=== PATIENT | female | born 1935 | race African-American/Black ===

== ENCOUNTER 2019-10-28 09:34 | Observation (INO) ==
[2019-10-28] MEDS ORDERED: PANTOPRAZOLE 40 MG VIAL IV STA (10:09)
[2019-10-28 10:41] LABS: Basophils % 0.2 % (0.0-0.8); Eosinophils # 0.3 10*3/uL (0.0-0.87); Hematocrit 20.7 VOL% (35.7-47.0); Immature Granulocytes % 0.7 %; Immature Granulocytes Absolute 0.06 #; Lymphocytes # 2.1 10*3/uL (1.4-4.0); Lymphocytes % 23.5 % (21.3-54.2); Mean Corpuscular Volume 88.5 FL (87-102); Mean Platelet Volume 10.1 FL (9.6-12.0); Monocytes % 11.8 % (1.7-12.7); NRBC # 0.02 10*3/uL; Neutrophils % 60.8 % (38.7-73.9); Platelet Count 323 T/CUMM (130-400); Red Blood Count 2.34 MC/CUMM (3.8-5.5); Red Cell Distribution Width 19.9 % (9.3-17.3)
[2019-10-28 10:43] LABS: Hemoglobin 5.8 GM/DL (12.0-16.0)
[2019-10-28] MEDS ORDERED: SODIUM CHLORIDE 0.9% 1,000 ML IV PRN ×2 (10:43→11:34)
[2019-10-28 10:54] LABS: PT Patient Result 10.5 SECS (9.8-11.9); Partial Thromboplastin Time 30.5 SECS (23.9-33.8)
[2019-10-28 10:58] LABS: Albumin 2.7 G/DL (3.4-5.0); Anisocytosis 2+; Bilirubin,Total 1.4 MG/DL (0.2-1.0); Calcium 8.7 MG/DL (8.5-10.1); Osmolality,Calculated 281.3 MOS/KG (273-304); Platelet Estimate Normal; Total Protein 6.9 G/DL (6.4-8.3)
[2019-10-28 10:59] LABS: Tear Drop Cells Few
[2019-10-28 11:00] LABS: Macrocytosis Slight
[2019-10-28] MEDS ORDERED: GLUCAGON 1 MG VIAL IM PRN (11:31)
[2019-10-28] MEDS ORDERED: ACETAMINOPHEN 325 MG TABLET PO PRN (11:31)
[2019-10-28] MEDS ORDERED: DEXTROSE 50% 25 GM/50 ML VIAL IV PRN (11:31)
[2019-10-28] MEDS ORDERED: MORPHINE 4 MG/1 ML VIAL IV PRN (11:31)
[2019-10-28] MEDS ORDERED: ONDANSETRON 4 MG/2 ML VIAL IV PRN (11:31)
[2019-10-28] MEDS ORDERED: FUROSEMIDE 40 MG/4 ML VIAL IV PRN (11:34)
[2019-10-28] MEDS ORDERED: PANTOPRAZOLE 40 MG TABLET PO SCH (12:00)
[2019-10-28] MEDS ORDERED: FUROSEMIDE 20 MG TABLET PO PRN (12:19)
[2019-10-28] MEDS ORDERED: hydrALAZINE 20 MG/1 ML VIAL IV PRN (12:20)
[2019-10-28] MEDS: amLODIPine 5 MG TABLET PO SCH (13:32)
[2019-10-28] MEDS: carvediloL 25 MG TABLET PO SCH (17:13)
[2019-10-28 19:36] LABS: Hematocrit 26.7 VOL% (35.7-47.0); Hemoglobin 7.9 GM/DL (12.0-16.0)
[2019-10-28] MEDS: BRIMONIDINE/TIMOLOL OPH SOLN 5 ML BOTTLE BOTH EYES SCH (21:12)
[2019-10-28] MEDS: TRAVOPROST 0.004% OPH SOLN 2.5 ML BOTTLE BOTH EYES SCH (21:12)
[2019-10-28] MEDS: azaTHIOprine 50 MG TABLET PO SCH (21:13)
[2019-10-28] MEDS: MONTELUKAST 10 MG TABLET PO SCH (21:13)
[2019-10-28] MEDS: PANTOPRAZOLE 40 MG TABLET PO SCH (21:14)
[2019-10-28] MEDS: ISOSORBIDE MONONITRATE 30 MG TABLET PO SCH (21:14)
[2019-10-28] MEDS: FERROUS GLUCONATE 324 MG TABLET PO SCH (21:14)
[2019-10-29 04:27] LABS: Basophils % 0.3 % (0.0-0.8); Eosinophils # 0.2 10*3/uL (0.0-0.87); Eosinophils % 2.6 % (0.00-10.9); Hematocrit 26.8 VOL% (35.7-47.0); Hemoglobin 8.1 GM/DL (12.0-16.0); Immature Granulocytes % 0.8 %; Immature Granulocytes Absolute 0.07 #; Lymphocytes # 2.1 10*3/uL (1.4-4.0); Lymphocytes % 23.5 % (21.3-54.2); Mean Corpuscular HGB Conc 30.2 GM/DL (32-36); Mean Corpuscular Volume 86.7 FL (87-102); Mean Platelet Volume 10.9 FL (9.6-12.0); NRBC # 0.04 10*3/uL; Neutrophils % 60.8 % (38.7-73.9); Platelet Count 302 T/CUMM (130-400); Red Blood Count 3.09 MC/CUMM (3.8-5.5); Red Cell Distribution Width 18.2 % (9.3-17.3)
[2019-10-29 04:46] LABS: Albumin 2.3 G/DL (3.4-5.0); Calcium 8.4 MG/DL (8.5-10.1); Osmolality,Calculated 281.3 MOS/KG (273-304); Total Protein 6.1 G/DL (6.4-8.3)
[2019-10-29] MEDS ORDERED: SUCRALFATE 1 GM/10 ML UDCUP NG ONE (08:03)
[2019-10-29] MEDS: PANTOPRAZOLE 40 MG TABLET PO SCH ×2 (09:11→21:20)
[2019-10-29] MEDS: amLODIPine 5 MG TABLET PO SCH (09:11)
[2019-10-29] MEDS: carvediloL 25 MG TABLET PO SCH ×2 (09:11→16:56)
[2019-10-29] MEDS: azaTHIOprine 50 MG TABLET PO SCH ×2 (09:11→21:24)
[2019-10-29] MEDS: FERROUS GLUCONATE 324 MG TABLET PO SCH ×2 (09:12→21:20)
[2019-10-29] MEDS: BRIMONIDINE/TIMOLOL OPH SOLN 5 ML BOTTLE BOTH EYES SCH ×2 (09:12→21:24)
[2019-10-29] MEDS ORDERED: FUROSEMIDE 20 MG/2 ML VIAL IV PRN (09:55)
[2019-10-29] MEDS: FUROSEMIDE 20 MG TABLET PO SCH (09:55)
[2019-10-29] MEDS ORDERED: FUROSEMIDE 40 MG/4 ML VIAL IV PRN (10:09)
[2019-10-29 11:41] LABS: Hematocrit 28.5 VOL% (35.7-47.0); Hemoglobin 8.6 GM/DL (12.0-16.0)
[2019-10-29] MEDS: BETAMETHASONE DIPR 0.05% CREAM 15 GM TUBE TOP SCH (17:00)
[2019-10-29 18:55] LABS: Hematocrit 30.1 VOL% (35.7-47.0); Hemoglobin 9.2 GM/DL (12.0-16.0)
[2019-10-29] MEDS ORDERED: guaiFENesin/DM ER 600-30 MG TABLET PO ONE (20:30)
[2019-10-29] MEDS: MONTELUKAST 10 MG TABLET PO SCH (21:20)
[2019-10-29] MEDS: ISOSORBIDE MONONITRATE 30 MG TABLET PO SCH (21:24)
[2019-10-29] MEDS: TRAVOPROST 0.004% OPH SOLN 2.5 ML BOTTLE BOTH EYES SCH (21:24)
[2019-10-30 05:33] LABS: Basophils % 0.3 % (0.0-0.8); Eosinophils # 0.2 10*3/uL (0.0-0.87); Eosinophils % 2.6 % (0.00-10.9); Hematocrit 28.7 VOL% (35.7-47.0); Hemoglobin 8.6 GM/DL (12.0-16.0); Immature Granulocytes % 0.9 %; Immature Granulocytes Absolute 0.08 #; Lymphocytes # 2.2 10*3/uL (1.4-4.0); Lymphocytes % 23.4 % (21.3-54.2); Mean Corpuscular Volume 88.9 FL (87-102); Mean Platelet Volume 10.5 FL (9.6-12.0); Monocytes % 11.4 % (1.7-12.7); NRBC # 0.05 10*3/uL; Neutrophils % 61.4 % (38.7-73.9); Platelet Count 293 T/CUMM (130-400); Red Blood Count 3.23 MC/CUMM (3.8-5.5); Red Cell Distribution Width 17.9 % (9.3-17.3); White Blood Count 9.2 T/CUMM (4-12)
[2019-10-30 06:32] LABS: Hypochromasia 2+; Ovalocytes Few
[2019-10-30 06:33] LABS: Microcytosis 1+; Platelet Estimate Normal; Polychromasia Slight
[2019-10-30 07:55] VITALS: BP 141/69
[2019-10-30] MEDS: carvediloL 25 MG TABLET PO SCH (09:44)
[2019-10-30] MEDS: azaTHIOprine 50 MG TABLET PO SCH (09:45)
[2019-10-30] MEDS: FERROUS GLUCONATE 324 MG TABLET PO SCH (09:45)
[2019-10-30] MEDS: amLODIPine 5 MG TABLET PO SCH (09:46)
[2019-10-30] MEDS: PANTOPRAZOLE 40 MG TABLET PO SCH (09:46)
[2019-10-30] MEDS: FUROSEMIDE 20 MG TABLET PO SCH (09:47)
[2019-10-30] MEDS: BRIMONIDINE/TIMOLOL OPH SOLN 5 ML BOTTLE BOTH EYES SCH (09:50)
[2019-10-30] MEDS: BETAMETHASONE DIPR 0.05% CREAM 15 GM TUBE TOP SCH (09:52)
== END 2019-10-30 12:02 | disposition home health service (06) ==
LOC: N.ED 09:34 → N.EDINP 11:31 → INTOOBSV 11:31 → N.EDINP 12:40 → N.5E 12:46
PROVIDERS: ADMIT Internal Medicine; ATTEND Internal Medicine

== ENCOUNTER 2019-12-07 11:34 | Inpatient (IN) ==
[2019-12-07] MEDS ORDERED: DILTIAZEM 50 MG/10 ML VIAL IV STA (11:56)
[2019-12-07] MEDS ORDERED: GLUCAGON 1 MG VIAL IM PRN (13:08)
[2019-12-07] MEDS ORDERED: DEXTROSE 50% 25 GM/50 ML VIAL IV PRN (13:08)
[2019-12-07] MEDS ORDERED: ONDANSETRON 4 MG/2 ML VIAL IV PRN (13:08)
[2019-12-07] MEDS ORDERED: ACETAMINOPHEN 325 MG TABLET PO PRN (13:08)
[2019-12-07 13:37] LABS: Basophils % 0.1 % (0.0-0.8); Eosinophils # 0.2 10*3/uL (0.0-0.87); Eosinophils % 2.6 % (0.00-10.9); Hematocrit 28.9 VOL% (35.7-47.0); Immature Granulocytes % 0.6 %; Immature Granulocytes Absolute 0.04 #; Lymphocytes % 14.5 % (21.3-54.2); Mean Corpuscular HGB Conc 31.1 GM/DL (32-36); Mean Corpuscular Volume 89.5 FL (87-102); Monocytes % 11.9 % (1.7-12.7); Neutrophils % 70.3 % (38.7-73.9); PT Patient Result 10.9 SECS (9.8-11.9); Partial Thromboplastin Time 33.8 SECS (23.9-33.8); Red Blood Count 3.23 MC/CUMM (3.8-5.5); Red Cell Distribution Width 22.4 % (9.3-17.3)
[2019-12-07 13:38] LABS: Platelet Count 60 T/CUMM (130-400)
[2019-12-07 14:03] LABS: Bilirubin,Total 0.8 MG/DL (0.2-1.0); Calcium 9.1 MG/DL (8.5-10.1); Osmolality,Calculated 278.4 MOS/KG (273-304); Thyroid Stimulating Hormone 4.33 uIU/ml (0.358-3.74); Total Protein 7.2 G/DL (6.4-8.3)
[2019-12-07 14:10] LABS: Anisocytosis 1+; Hypochromasia Slight; Microcytosis 1+; Platelet Estimate Decreased
[2019-12-07] MEDS: dilTIAZem Drip 125 MG/125 ML PREMIX IV SCH ×2 (15:19→22:03)
[2019-12-07 18:50] LABS: Bilirubin,Urine Negative (Negative); Blood, Urine Negative (Negative); Glucose,Urine (UA) Negative (Negative); Ketones,Urine Negative (Negative); Nitrite,Urine Negative (Negative); Protein,Urine Negative; RBC,Urine 1 /HPF (0-4); Squamous Epithelial Cell,Urine Occasional /HPF (0-10); Urine Appearance CLEAR (Clear); Urine Color Straw (Yellow); Urine Specific Gravity 1.006 (1.001-1.035); Urine Urobilinogen < 2.0 EU/DL (0.2-1.0); WBC,Urine <1 /HPF (0-6)
[2019-12-07 19:03] LABS: Barbiturates Screen,Urine Negative (Negative); Benzodiazepines Screen,Urine Negative (Negative); Cannabinoid Screen,Urine Negative (Negative); Opiate Screen,Urine Negative (Negative); Phencyclidine Screen,Urine Negative (Negative)
[2019-12-08 06:14] LABS: Albumin 2.4 G/DL (3.4-5.0); Bilirubin,Total 0.6 MG/DL (0.2-1.0); Calcium 8.6 MG/DL (8.5-10.1); Osmolality,Calculated 278.5 MOS/KG (273-304); Risk Ratio 3.12; Total Protein 6.5 G/DL (6.4-8.3); VLDL CHOLESTEROL 18.4 MG/DL
[2019-12-08 07:02] LABS: Basophils % 0.2 % (0.0-0.8); Eosinophils # 0.2 10*3/uL (0.0-0.87); Eosinophils % 2.9 % (0.00-10.9); Hematocrit 24.1 VOL% (35.7-47.0); Immature Granulocytes Absolute 0.06 #; Mean Corpuscular HGB Conc 31.1 GM/DL (32-36); Mean Corpuscular Volume 89.9 FL (87-102); Monocytes % 15.9 % (1.7-12.7); Red Blood Count 2.68 MC/CUMM (3.8-5.5); Red Cell Distribution Width 22.5 % (9.3-17.3); White Blood Count 6.1 T/CUMM (4-12)
[2019-12-08 07:13] LABS: Hemoglobin 7.5 GM/DL (12.0-16.0)
[2019-12-08 07:14] LABS: Platelet Count 59 T/CUMM (130-400)
[2019-12-08 07:26] LABS: Eosinophils 3 % (0-10); Lymphocytes 19 % (20-55); Platelet Estimate Decreased; Segmented Neutrophils 72 % (50-85); Total Cells Counted 100
[2019-12-08 07:27] LABS: Atypical Lymphocytes Few; Hypochromasia 1+; Microcytosis Slight
[2019-12-08 08:08] LABS: Hematocrit 24.1 VOL% (35.7-47.0); Hemoglobin 7.4 GM/DL (12.0-16.0)
[2019-12-08 08:34] LABS: % Iron Saturation 13.8 % (18-50)
[2019-12-08 08:44] LABS: Folate 6.6 NG/ML (5.4-24.0)
[2019-12-08] MEDS ORDERED: amLODIPine 5 MG TABLET PO SCH (09:00)
[2019-12-08] MEDS ORDERED: PANTOPRAZOLE 40 MG TABLET PO SCH (09:00)
[2019-12-08] MEDS: FERROUS GLUCONATE 324 MG TABLET PO SCH ×2 (09:16→22:00)
[2019-12-08] MEDS: carvediloL 25 MG TABLET PO SCH ×2 (09:17→21:57)
[2019-12-08] MEDS: DILTIAZEM CD 120 MG CAPSULE PO SCH (10:37)
[2019-12-08] MEDS ORDERED: IRON SUCROSE 300 MG in SODIUM CHLORIDE 0.9% 100 ML IV ONE (11:32)
[2019-12-08] MEDS: BRIMONIDINE/TIMOLOL OPH SOLN 5 ML BOTTLE BOTH EYES SCH ×2 (11:38→21:58)
[2019-12-08] MEDS: TRIAMCINOLONE 0.1% OINT 15 GM TUBE TOP SCH ×2 (11:38→22:22)
[2019-12-08] MEDS: azaTHIOprine 50 MG TABLET PO SCH ×2 (11:39→21:56)
[2019-12-08] MEDS: BETAMETHASONE DIPR 0.05% CREAM 15 GM TUBE TOP SCH ×2 (11:39→22:22)
[2019-12-08] MEDS: dilTIAZem Drip 125 MG/125 ML PREMIX IV SCH (13:08)
[2019-12-08] MEDS ORDERED: guaiFENesin 200 MG/10 ML UDCUP PO PRN (14:18)
[2019-12-08] MEDS: GABAPENTIN 100 MG CAPSULE PO SCH ×3 (15:04→22:02)
[2019-12-08] MEDS: PANTOPRAZOLE 40 MG TABLET PO SCH (21:56)
[2019-12-08] MEDS: MONTELUKAST 10 MG TABLET PO SCH (21:56)
[2019-12-08] MEDS: TRAVOPROST 0.004% OPH SOLN 2.5 ML BOTTLE BOTH EYES SCH (21:57)
[2019-12-08] MEDS: ISOSORBIDE MONONITRATE 30 MG TABLET PO SCH (22:01)
[2019-12-09 06:09] LABS: Basophils % 0.1 % (0.0-0.8); Eosinophils # 0.2 10*3/uL (0.0-0.87); Eosinophils % 2.7 % (0.00-10.9); Hematocrit 23.1 VOL% (35.7-47.0); Hemoglobin 7.1 GM/DL (12.0-16.0); Immature Granulocytes % 0.6 %; Immature Granulocytes Absolute 0.04 #; Lymphocytes # 0.9 10*3/uL (1.4-4.0); Lymphocytes % 12.3 % (21.3-54.2); Mean Corpuscular HGB Conc 30.7 GM/DL (32-36); Mean Corpuscular Volume 90.6 FL (87-102); Neutrophils % 71.3 % (38.7-73.9); Platelet Count 56 T/CUMM (130-400); Red Blood Count 2.55 MC/CUMM (3.8-5.5); Red Cell Distribution Width 22.5 % (9.3-17.3); White Blood Count 7.1 T/CUMM (4-12)
[2019-12-09 06:23] LABS: Alanine Aminotransferase < 6 U/L (13-56); Albumin 2.3 G/DL (3.4-5.0); Alkaline Phosphatase 59 U/L (45-117); Aspartate Amino Transferase 12 U/L (0-37); Blood Urea Nitrogen 10 MG/DL (7-18); Calcium 8.8 MG/DL (8.5-10.1); Estimated Glom Filtration Rate 104 ML/MIN; Glucose 140 MG/DL (74-106); Osmolality,Calculated 281.3 MOS/KG (273-304); Total Protein 6.4 G/DL (6.4-8.3)
[2019-12-09 06:49] LABS: Eosinophils 1 % (0-10); Hypochromasia 1+; Lymphocytes 13 % (20-55); Microcytosis 1+; Segmented Neutrophils 74 % (50-85); Total Cells Counted 100
[2019-12-09 06:50] LABS: Ovalocytes Slight; Platelet Estimate Decreased
[2019-12-09] MEDS ORDERED: SODIUM CHLORIDE 0.9% 1,000 ML IV PRN (07:38)
[2019-12-09] MEDS: GABAPENTIN 100 MG CAPSULE PO SCH ×2 (09:39→21:08)
[2019-12-09] MEDS: DILTIAZEM CD 120 MG CAPSULE PO SCH (09:40)
[2019-12-09] MEDS: azaTHIOprine 50 MG TABLET PO SCH ×2 (09:40→21:19)
[2019-12-09] MEDS: FERROUS GLUCONATE 324 MG TABLET PO SCH ×2 (09:40→21:20)
[2019-12-09] MEDS: PANTOPRAZOLE 40 MG TABLET PO SCH (09:42)
[2019-12-09] MEDS: BETAMETHASONE DIPR 0.05% CREAM 15 GM TUBE TOP SCH ×2 (09:42→21:20)
[2019-12-09] MEDS: BRIMONIDINE/TIMOLOL OPH SOLN 5 ML BOTTLE BOTH EYES SCH ×2 (09:44→21:11)
[2019-12-09] MEDS: TRIAMCINOLONE 0.1% OINT 15 GM TUBE TOP SCH ×2 (09:44→21:20)
[2019-12-09] MEDS: carvediloL 25 MG TABLET PO SCH ×2 (09:46→21:09)
[2019-12-09] MEDS: dilTIAZem Drip 125 MG/125 ML PREMIX IV SCH (11:42)
[2019-12-09 13:15] LABS: Basophils % 0.3 % (0.0-0.8); Eosinophils # 0.2 10*3/uL (0.0-0.87); Eosinophils % 2.9 % (0.00-10.9); Hematocrit 24.5 VOL% (35.7-47.0); Hemoglobin 7.3 GM/DL (12.0-16.0); Immature Granulocytes % 0.8 %; Immature Granulocytes Absolute 0.05 #; Lymphocytes # 0.9 10*3/uL (1.4-4.0); Lymphocytes % 14.1 % (21.3-54.2); Mean Corpuscular HGB Conc 29.8 GM/DL (32-36); Mean Corpuscular Volume 92.8 FL (87-102); Monocytes % 11.6 % (1.7-12.7); Neutrophils % 70.3 % (38.7-73.9); Platelet Count 54 T/CUMM (130-400); Red Blood Count 2.64 MC/CUMM (3.8-5.5); Red Cell Distribution Width 22.5 % (9.3-17.3); White Blood Count 6.5 T/CUMM (4-12)
[2019-12-09 14:50] LABS: Eosinophils 2 % (0-10); Lymphocytes 9 % (20-55); Platelet Estimate Decreased; Segmented Neutrophils 81 % (50-85); Total Cells Counted 100
[2019-12-09 14:51] LABS: Anisocytosis 1+; Hypochromasia 2+; Ovalocytes Few
[2019-12-09 14:52] LABS: Macrocytosis 1+; Microcytosis 1+; Tear Drop Cells Few
[2019-12-09] MEDS: MONTELUKAST 10 MG TABLET PO SCH (21:08)
[2019-12-09] MEDS: FAMOTIDINE 20 MG TABLET PO SCH (21:09)
[2019-12-09] MEDS: TRAVOPROST 0.004% OPH SOLN 2.5 ML BOTTLE BOTH EYES SCH (21:11)
[2019-12-09] MEDS: ISOSORBIDE MONONITRATE 30 MG TABLET PO SCH (21:20)
[2019-12-10 06:28] LABS: Basophils % 0.3 % (0.0-0.8); Eosinophils # 0.2 10*3/uL (0.0-0.87); Eosinophils % 2.5 % (0.00-10.9); Hematocrit 31.5 VOL% (35.7-47.0); Hemoglobin 9.9 GM/DL (12.0-16.0); Immature Granulocytes % 0.6 %; Immature Granulocytes Absolute 0.04 #; Lymphocytes # 0.8 10*3/uL (1.4-4.0); Lymphocytes % 10.8 % (21.3-54.2); Mean Corpuscular HGB Conc 31.4 GM/DL (32-36); Monocytes % 12.2 % (1.7-12.7); Neutrophils % 73.6 % (38.7-73.9); Platelet Count 56 T/CUMM (130-400); Red Blood Count 3.54 MC/CUMM (3.8-5.5); Red Cell Distribution Width 19.8 % (9.3-17.3); White Blood Count 7.2 T/CUMM (4-12)
[2019-12-10 06:48] LABS: Alanine Aminotransferase < 9 U/L (13-56); Albumin 2.5 G/DL (3.4-5.0); Alkaline Phosphatase 65 U/L (45-117); Aspartate Amino Transferase 11 U/L (0-37); Blood Urea Nitrogen 9 MG/DL (7-18); Calcium 8.7 MG/DL (8.5-10.1); Estimated Glom Filtration Rate 88 ML/MIN; Glucose 180 MG/DL (74-106); Osmolality,Calculated 278.7 MOS/KG (273-304)
[2019-12-10 07:36] LABS: Band Neutrophils 6 % (0-10); Eosinophils 7 % (0-10); Lymphocytes 14 % (20-55); Platelet Estimate Decreased; Segmented Neutrophils 62 % (50-85); Total Cells Counted 100
[2019-12-10 07:37] LABS: Anisocytosis 2+; Poikilocytosis Slight
[2019-12-10] MEDS: azaTHIOprine 50 MG TABLET PO SCH ×2 (09:46→22:20)
[2019-12-10] MEDS: GABAPENTIN 100 MG CAPSULE PO SCH ×2 (09:46→22:20)
[2019-12-10] MEDS: FAMOTIDINE 20 MG TABLET PO SCH ×2 (09:46→22:34)
[2019-12-10] MEDS: carvediloL 25 MG TABLET PO SCH ×2 (09:46→22:20)
[2019-12-10] MEDS: DILTIAZEM CD 120 MG CAPSULE PO SCH (09:47)
[2019-12-10] MEDS: FERROUS GLUCONATE 324 MG TABLET PO SCH ×2 (09:47→22:20)
[2019-12-10] MEDS: TRIAMCINOLONE 0.1% OINT 15 GM TUBE TOP SCH ×2 (09:48→22:34)
[2019-12-10] MEDS: BETAMETHASONE DIPR 0.05% CREAM 15 GM TUBE TOP SCH ×2 (09:48→22:34)
[2019-12-10] MEDS: BRIMONIDINE/TIMOLOL OPH SOLN 5 ML BOTTLE BOTH EYES SCH ×2 (09:48→22:34)
[2019-12-10] MEDS: dilTIAZem Drip 125 MG/125 ML PREMIX IV SCH (11:33)
[2019-12-10] MEDS ORDERED: FUROSEMIDE 40 MG TABLET PO ONE (11:56)
[2019-12-10] MEDS ORDERED: FUROSEMIDE 40 MG TABLET PO SCH (12:00)
[2019-12-10] MEDS: ISOSORBIDE MONONITRATE 30 MG TABLET PO SCH (22:23)
[2019-12-10] MEDS: MONTELUKAST 10 MG TABLET PO SCH (22:24)
[2019-12-10] MEDS: TRAVOPROST 0.004% OPH SOLN 2.5 ML BOTTLE BOTH EYES SCH (22:34)
[2019-12-11 06:12] LABS: Basophils % 0.2 % (0.0-0.8); Eosinophils # 0.2 10*3/uL (0.0-0.87); Eosinophils % 2.8 % (0.00-10.9); Hematocrit 29.6 VOL% (35.7-47.0); Hemoglobin 9.2 GM/DL (12.0-16.0); Immature Granulocytes % 0.3 %; Immature Granulocytes Absolute 0.02 #; Lymphocytes # 0.9 10*3/uL (1.4-4.0); Lymphocytes % 14.4 % (21.3-54.2); Mean Corpuscular HGB Conc 31.1 GM/DL (32-36); Neutrophils % 69.3 % (38.7-73.9); Platelet Count 44 T/CUMM (130-400); Red Blood Count 3.29 MC/CUMM (3.8-5.5); Red Cell Distribution Width 19.3 % (9.3-17.3); White Blood Count 6.1 T/CUMM (4-12)
[2019-12-11 06:28] LABS: Calcium 8.4 MG/DL (8.5-10.1); Osmolality,Calculated 281.3 MOS/KG (273-304)
[2019-12-11] MEDS ORDERED: MAGNESIUM SULF RIDER 4 GM in PREMIX 1 EACH IV ONE (06:53)
[2019-12-11 07:16] LABS: Anisocytosis 1+; Band Neutrophils 5 % (0-10); Eosinophils 3 % (0-10); Lymphocytes 15 % (20-55); Macrocytosis Slight; Platelet Estimate Decreased; Poikilocytosis Slight; Segmented Neutrophils 67 % (50-85); Tear Drop Cells Few; Total Cells Counted 100
[2019-12-11] MEDS: FAMOTIDINE 20 MG TABLET PO SCH ×2 (09:04→21:32)
[2019-12-11] MEDS: carvediloL 25 MG TABLET PO SCH ×2 (09:04→21:32)
[2019-12-11] MEDS: FERROUS GLUCONATE 324 MG TABLET PO SCH ×2 (09:05→21:39)
[2019-12-11] MEDS: DILTIAZEM CD 120 MG CAPSULE PO SCH (09:05)
[2019-12-11] MEDS: GABAPENTIN 100 MG CAPSULE PO SCH ×2 (09:05→21:32)
[2019-12-11] MEDS: azaTHIOprine 50 MG TABLET PO SCH ×2 (09:08→21:32)
[2019-12-11] MEDS: TRIAMCINOLONE 0.1% OINT 15 GM TUBE TOP SCH ×2 (09:09→21:32)
[2019-12-11] MEDS: BETAMETHASONE DIPR 0.05% CREAM 15 GM TUBE TOP SCH ×2 (09:09→21:32)
[2019-12-11] MEDS: BRIMONIDINE/TIMOLOL OPH SOLN 5 ML BOTTLE BOTH EYES SCH ×2 (09:09→21:33)
[2019-12-11] MEDS ORDERED: MAGNESIUM SULF RIDER 2 GM in PREMIX 1 EACH IV ONE (13:50)
[2019-12-11] MEDS: MONTELUKAST 10 MG TABLET PO SCH (21:32)
[2019-12-11] MEDS: ISOSORBIDE MONONITRATE 30 MG TABLET PO SCH (21:32)
[2019-12-11] MEDS: TRAVOPROST 0.004% OPH SOLN 2.5 ML BOTTLE BOTH EYES SCH (21:33)
[2019-12-12 06:09] LABS: Basophils % 0.2 % (0.0-0.8); Eosinophils # 0.2 10*3/uL (0.0-0.87); Eosinophils % 2.6 % (0.00-10.9); Hematocrit 28.4 VOL% (35.7-47.0); Hemoglobin 9.1 GM/DL (12.0-16.0); Immature Granulocytes % 0.6 %; Immature Granulocytes Absolute 0.04 #; Lymphocytes # 0.9 10*3/uL (1.4-4.0); Lymphocytes % 14.2 % (21.3-54.2); Monocytes % 10.8 % (1.7-12.7); Neutrophils % 71.6 % (38.7-73.9); Red Blood Count 3.19 MC/CUMM (3.8-5.5); Red Cell Distribution Width 19.2 % (9.3-17.3); White Blood Count 6.2 T/CUMM (4-12)
[2019-12-12 06:10] LABS: Platelet Count 42 T/CUMM (130-400)
[2019-12-12 06:11] LABS: Calcium 8.4 MG/DL (8.5-10.1); Osmolality,Calculated 280.4 MOS/KG (273-304)
[2019-12-12 06:29] LABS: Eosinophils 2 % (0-10); Lymphocytes 13 % (20-55); Platelet Estimate Decreased; Segmented Neutrophils 76 % (50-85); Total Cells Counted 100
[2019-12-12 06:30] LABS: Hypochromasia 1+; Microcytosis 1+; Ovalocytes Slight
[2019-12-12] MEDS: azaTHIOprine 50 MG TABLET PO SCH ×2 (09:08→21:25)
[2019-12-12] MEDS: DILTIAZEM CD 120 MG CAPSULE PO SCH (09:08)
[2019-12-12] MEDS: carvediloL 25 MG TABLET PO SCH ×2 (09:08→21:24)
[2019-12-12] MEDS: FERROUS GLUCONATE 324 MG TABLET PO SCH ×2 (09:09→21:24)
[2019-12-12] MEDS: FAMOTIDINE 20 MG TABLET PO SCH ×2 (09:09→21:26)
[2019-12-12] MEDS: GABAPENTIN 100 MG CAPSULE PO SCH ×2 (09:09→21:24)
[2019-12-12] MEDS: BRIMONIDINE/TIMOLOL OPH SOLN 5 ML BOTTLE BOTH EYES SCH ×2 (09:14→21:26)
[2019-12-12] MEDS: BETAMETHASONE DIPR 0.05% CREAM 15 GM TUBE TOP SCH ×2 (09:14→21:45)
[2019-12-12] MEDS: TRIAMCINOLONE 0.1% OINT 15 GM TUBE TOP SCH ×2 (09:14→21:45)
[2019-12-12] MEDS: LORATADINE 10 MG TABLET PO SCH (10:01)
[2019-12-12] MEDS: MONTELUKAST 10 MG TABLET PO SCH (21:24)
[2019-12-12] MEDS: ISOSORBIDE MONONITRATE 30 MG TABLET PO SCH (21:25)
[2019-12-12] MEDS: TRAVOPROST 0.004% OPH SOLN 2.5 ML BOTTLE BOTH EYES SCH (21:26)
[2019-12-13 05:09] LABS: Basophils % 0.2 % (0.0-0.8); Eosinophils # 0.1 10*3/uL (0.0-0.87); Hematocrit 27.1 VOL% (35.7-47.0); Hemoglobin 8.3 GM/DL (12.0-16.0); Immature Granulocytes % 0.4 %; Immature Granulocytes Absolute 0.02 #; Lymphocytes % 19.1 % (21.3-54.2); Mean Corpuscular HGB Conc 30.6 GM/DL (32-36); Mean Corpuscular Volume 90.9 FL (87-102); Monocytes % 11.2 % (1.7-12.7); Neutrophils % 67.1 % (38.7-73.9); Red Blood Count 2.98 MC/CUMM (3.8-5.5); Red Cell Distribution Width 19.4 % (9.3-17.3)
[2019-12-13 05:12] LABS: Platelet Count 36 T/CUMM (130-400)
[2019-12-13 05:22] LABS: Calcium 8.5 MG/DL (8.5-10.1); Calcium 8.7 MG/DL (8.5-10.1); Osmolality,Calculated 274.8 MOS/KG (273-304); Osmolality,Calculated 280.4 MOS/KG (273-304)
[2019-12-13 05:29] LABS: Hypochromasia 1+; Microcytosis 1+; Platelet Estimate Decreased
[2019-12-13] MEDS: LORATADINE 10 MG TABLET PO SCH (08:39)
[2019-12-13] MEDS: FERROUS GLUCONATE 324 MG TABLET PO SCH ×2 (08:39→21:54)
[2019-12-13] MEDS: carvediloL 25 MG TABLET PO SCH ×2 (08:39→21:55)
[2019-12-13] MEDS: FAMOTIDINE 20 MG TABLET PO SCH ×2 (08:39→21:54)
[2019-12-13] MEDS: GABAPENTIN 100 MG CAPSULE PO SCH ×2 (08:39→21:55)
[2019-12-13] MEDS: DILTIAZEM CD 120 MG CAPSULE PO SCH (08:40)
[2019-12-13] MEDS: azaTHIOprine 50 MG TABLET PO SCH ×2 (08:40→21:56)
[2019-12-13] MEDS: BETAMETHASONE DIPR 0.05% CREAM 15 GM TUBE TOP SCH ×2 (08:43→21:58)
[2019-12-13] MEDS: TRIAMCINOLONE 0.1% OINT 15 GM TUBE TOP SCH ×2 (08:43→21:58)
[2019-12-13] MEDS: BRIMONIDINE/TIMOLOL OPH SOLN 5 ML BOTTLE BOTH EYES SCH ×2 (08:43→21:52)
[2019-12-13] MEDS: TRAVOPROST 0.004% OPH SOLN 2.5 ML BOTTLE BOTH EYES SCH (21:52)
[2019-12-13] MEDS: MONTELUKAST 10 MG TABLET PO SCH (21:56)
[2019-12-13] MEDS: ISOSORBIDE MONONITRATE 30 MG TABLET PO SCH (21:56)
[2019-12-14 07:31] LABS: Basophils % 0.2 % (0.0-0.8); Eosinophils # 0.1 10*3/uL (0.0-0.87); Eosinophils % 2.4 % (0.00-10.9); Hematocrit 26.1 VOL% (35.7-47.0); Immature Granulocytes % 0.5 %; Immature Granulocytes Absolute 0.03 #; Lymphocytes # 0.9 10*3/uL (1.4-4.0); Lymphocytes % 16.5 % (21.3-54.2); Mean Corpuscular HGB Conc 30.7 GM/DL (32-36); Mean Corpuscular Volume 91.3 FL (87-102); Monocytes % 11.4 % (1.7-12.7); Red Blood Count 2.86 MC/CUMM (3.8-5.5); Red Cell Distribution Width 19.4 % (9.3-17.3); White Blood Count 5.5 T/CUMM (4-12)
[2019-12-14 07:32] LABS: Platelet Count 38 T/CUMM (130-400)
[2019-12-14 07:45] LABS: Calcium 8.5 MG/DL (8.5-10.1); Osmolality,Calculated 282.3 MOS/KG (273-304)
[2019-12-14 07:58] LABS: Eosinophils 2 % (0-10); Hypochromasia 1+; Lymphocytes 8 % (20-55); Platelet Estimate Decreased; Segmented Neutrophils 84 % (50-85); Total Cells Counted 100
[2019-12-14 07:59] LABS: Microcytosis 1+; Ovalocytes Slight
[2019-12-14] MEDS: FERROUS GLUCONATE 324 MG TABLET PO SCH (08:30)
[2019-12-14] MEDS: GABAPENTIN 100 MG CAPSULE PO SCH (08:30)
[2019-12-14] MEDS: azaTHIOprine 50 MG TABLET PO SCH (08:30)
[2019-12-14] MEDS: FAMOTIDINE 20 MG TABLET PO SCH (08:30)
[2019-12-14] MEDS: BETAMETHASONE DIPR 0.05% CREAM 15 GM TUBE TOP SCH (08:31)
[2019-12-14] MEDS: LORATADINE 10 MG TABLET PO SCH (08:31)
[2019-12-14] MEDS: TRIAMCINOLONE 0.1% OINT 15 GM TUBE TOP SCH (08:31)
[2019-12-14] MEDS: DILTIAZEM CD 120 MG CAPSULE PO SCH (08:31)
[2019-12-14] MEDS: carvediloL 25 MG TABLET PO SCH (08:31)
[2019-12-14] MEDS: BRIMONIDINE/TIMOLOL OPH SOLN 5 ML BOTTLE BOTH EYES SCH (08:31)
[2019-12-14 12:19] VITALS: BP 134/62
== END 2019-12-14 15:00 | disposition home health service (06) | DRG 309 ==
LOC: N.ED 11:34 → SUATTDRO 13:05 → N.EDINP 13:05 → N.TELEN 13:35
PROVIDERS: ADMIT Internal Medicine; ATTEND Internal Medicine Geriatric Medicine

== ENCOUNTER 2019-12-30 11:08 | Observation (INO) ==
[2019-12-30 11:55] LABS: Basophils % 0.1 % (0.0-0.8); Eosinophils # 0.1 10*3/uL (0.0-0.87); Eosinophils % 1.1 % (0.00-10.9); Hematocrit 21.1 VOL% (35.7-47.0); Hemoglobin 6.6 GM/DL (12.0-16.0); Immature Granulocytes % 1.1 %; Immature Granulocytes Absolute 0.09 #; Lymphocytes # 0.8 10*3/uL (1.4-4.0); Lymphocytes % 10.1 % (21.3-54.2); Mean Corpuscular HGB Conc 31.3 GM/DL (32-36); Mean Corpuscular Volume 90.9 FL (87-102); Monocytes % 8.7 % (1.7-12.7); Neutrophils % 78.9 % (38.7-73.9); Red Blood Count 2.32 MC/CUMM (3.8-5.5); Red Cell Distribution Width 19.3 % (9.3-17.3); White Blood Count 8.2 T/CUMM (4-12)
[2019-12-30 12:20] LABS: Albumin 2.7 G/DL (3.4-5.0); Calcium 8.8 MG/DL (8.5-10.1); Osmolality,Calculated 278.5 MOS/KG (273-304); Total Protein 7.1 G/DL (6.4-8.3)
[2019-12-30 12:31] LABS: Platelet Count 24 T/CUMM (130-400)
[2019-12-30 12:56] LABS: Band Neutrophils 13 % (0-10); Lymphocytes 7 % (20-55); Myelocytes 2 %; Platelet Estimate Decreased; Segmented Neutrophils 67 % (50-85); Total Cells Counted 100
[2019-12-30 12:57] LABS: Anisocytosis 1+; Hypochromasia 1+; Macrocytosis Slight; Poikilocytosis Slight
[2019-12-30] MEDS ORDERED: SODIUM CHLORIDE 0.9% 1,000 ML IV PRN (13:08)
[2019-12-30] MEDS ORDERED: FUROSEMIDE 40 MG/4 ML VIAL IV ONE (13:10)
[2019-12-30] MEDS ORDERED: ACETAMINOPHEN 325 MG TABLET PO SCH (13:30)
[2019-12-30] MEDS ORDERED: diphenhydrAMINE CAP 25 MG CAPSULE PO SCH (13:30)
[2019-12-30] MEDS ORDERED: FUROSEMIDE 100 MG/10 ML VIAL ONE (14:51)
[2019-12-30] MEDS ORDERED: MONTELUKAST 10 MG TABLET PO SCH (21:00)
[2019-12-30] MEDS ORDERED: TRAVOPROST 0.004% OPH SOLN 2.5 ML BOTTLE BOTH EYES SCH (21:00)
[2019-12-30] MEDS: FAMOTIDINE 20 MG TABLET PO SCH (21:37)
[2019-12-30] MEDS: GABAPENTIN 100 MG CAPSULE PO SCH (21:37)
[2019-12-30] MEDS: carvediloL 25 MG TABLET PO SCH (21:37)
[2019-12-30] MEDS: FERROUS GLUCONATE 324 MG TABLET PO SCH (21:37)
[2019-12-30] MEDS: BRIMONIDINE/TIMOLOL OPH SOLN 5 ML BOTTLE BOTH EYES SCH (21:44)
[2019-12-30] MEDS: azaTHIOprine 50 MG TABLET PO SCH (21:44)
[2019-12-31 04:33] LABS: Basophils % 0.4 % (0.0-0.8); Eosinophils # 0.1 10*3/uL (0.0-0.87); Eosinophils % 1.1 % (0.00-10.9); Hematocrit 24.5 VOL% (35.7-47.0); Immature Granulocytes % 0.9 %; Immature Granulocytes Absolute 0.05 #; Lymphocytes % 18.4 % (21.3-54.2); Mean Corpuscular HGB Conc 32.7 GM/DL (32-36); Mean Corpuscular Volume 87.5 FL (87-102); Mean Platelet Volume 9.3 FL (9.6-12.0); Monocytes % 13.7 % (1.7-12.7); NRBC # 0.02 10*3/uL; Neutrophils % 65.5 % (38.7-73.9); Red Cell Distribution Width 17.8 % (9.3-17.3)
[2019-12-31 04:38] LABS: White Blood Count 5.5 T/CUMM (4-12)
[2019-12-31 04:39] LABS: Platelet Count 41 T/CUMM (130-400)
[2019-12-31 04:59] LABS: Eosinophils 3 % (0-10); Hypochromasia 1+; Lymphocytes 16 % (20-55); Platelet Estimate Decreased; Segmented Neutrophils 70 % (50-85); Total Cells Counted 100
[2019-12-31] MEDS: carvediloL 25 MG TABLET PO SCH (08:33)
[2019-12-31] MEDS: FERROUS GLUCONATE 324 MG TABLET PO SCH (08:33)
[2019-12-31] MEDS: GABAPENTIN 100 MG CAPSULE PO SCH (08:34)
[2019-12-31] MEDS: BRIMONIDINE/TIMOLOL OPH SOLN 5 ML BOTTLE BOTH EYES SCH (08:35)
[2019-12-31] MEDS: FAMOTIDINE 20 MG TABLET PO SCH (08:35)
[2019-12-31] MEDS: azaTHIOprine 50 MG TABLET PO SCH (08:36)
[2019-12-31] MEDS ORDERED: IRON SUCROSE 300 MG in SODIUM CHLORIDE 0.9% 100 ML IV ONE (09:00)
[2019-12-31] MEDS ORDERED: LORATADINE 10 MG TABLET PO SCH (09:00)
[2019-12-31] MEDS ORDERED: DILTIAZEM CD 120 MG CAPSULE PO SCH (09:00)
[2019-12-31] MEDS ORDERED: amLODIPine 5 MG TABLET PO SCH (09:00)
[2019-12-31 11:52] VITALS: BP 139/60
== END 2019-12-31 14:15 | disposition home or self-care (01) ==
LOC: N.EDINP 11:08 → N.ED 11:08 → N.4E 15:34
PROVIDERS: ADMIT Internal Medicine; ATTEND Internal Medicine